=== PATIENT | female | born 1985 | race Caucasian/White ===

== ENCOUNTER 2020-01-19 18:49 | Emergency (ER) | payer MEDICAID, SELFPAY ==
--- NOTE | ~2020-01-19 | CT_ITS ---
EXAMINATION: CTA UE RT DATE: 01/19/2020 20:34 INDICATION: Right arm swelling TECHNIQUE: Computed tomography (CT) of the right upper extremity was performed with 100 cc Omnipaque 350 intravenous contrast. The dose-length product was 1268.48 mGy-cm. Automated exposure control and iterative reconstruction technique were employed. COMPARISON: None FINDINGS: Study is limited by motion. There is narrowing of the brachial artery, likely chronic. Ther e is no evidence for arterial occlusion. No focal abnormal masses or fluid collections. IMPRESSION: 1. No evidence for arterial occlusion. Brachial artery narrowing, likely chronic. Reviewed, dictated and finalized at location A. IMPRESSION: 1. No evidence for arterial occlusion. Brachial artery narrowing, likely chroni c.
[2020-01-19 18:54] VITALS: BP 141/107; PULSE 93; RESP 18; TEMP 36.6; O2SAT 99
--- NOTE | 2020-01-19 19:09 | ED.EXTPRO ---
HPI - Extremity Problem General Chief complaint: Extremity Problem,Nontraumatic Stated complaint: right arm swelling Time Seen by Provider: 01/19/20 19:00 Source: patient and RN notes reviewed Mode of arrival: ambulatory Limitations: no limitations History of Present Illness HPI Narrative: A 34 y/o female presents to the ED with constant, worsening, rt elbow pain beginning this morning when she woke up. She states that throughout the day the pain as continued to worsen and spread to her upper arm. She reports that she has also developed swelling to her rt hand with decreased sensation and tingling. She denies any neck pain, shoulder pain, or OGNZALEZ. Complaint: extremity pain Onset (ago): day(s) (this morning) Pain Consistency: constant and other (worsening) Location: right, upper extremity and elbow Radiation: proximal Associated symptoms: other (swelling to her rt hand with decreased sensation and tingling) Related Data Home Medications Medication Instructions Recorded Confirmed No Home Medications 01/19/20 01/19/20 Allergies Allergy/AdvReac Type Severity Reaction Status Date / Time No Known Allergies Allergy Verified 01/19/20 18:56 Review of Systems Review of Systems: All systems reviewed & are unremarkable except as noted in HPI and below Musculoskeletal: Musculoskeletal: Reports arthralgias (rt elbow that radiates into upper rt arm), Reports joint swelling (swelling), Denies neck pain and Denies other (shoulder pain) Neurologic: Denies headache(s), Reports numbness (decreased sensation to rt hand) and Reports tingling (rt hand) PMFSH Past Medical History Medical History (Updated 01/19/20 @ 22:59 by Chitra Carranza MD) Healthy female Surgical History Surgical History (Updated 01/19/20 @ 19:19 by Willie Howell) No history of previous surgery Social History Social History (Updated 01/19/20 @ 19:19 by Willie Howell) Smoking packs per day: 1 Smoking cigarettes per day: 20.0 Smoking status: Current every day smoker Tobacco type: cigarettes Gender identity (if verbalized by the patient): Female Exam Const: General: cooperative, no acute distress and alert Nutritional Appearance: well nourished Orientation/consciousness: patient oriented x3 Limitations: no limitations HENMT: Mouth: Yes lip normal and Yes moist mucous membranes Resp: Effort & Inspection: normal respiratory effort Auscultation: clear to auscultation bilaterally Cardio: Rate: regular rate Rhythm: regular rhythm Peripheral pulses: brachial pulses present on the right, radial pulses present on the right and ulnar radial pulses present on the right GI: GI Palp: Yes Soft to palpation and No Tenderness to palpation present (GI) Auscultation: normal bowel sounds Neuro: General: patient oriented x3 Cognition (Neuro): normal cognition Speech: normal speech Extrem: General: normal to inspection, full ROM and no clubbing, cyanosis or edema Right upper extremity: shoulder/upper arm (upper arm & forearm were soft w/out any tense compartments or over swelling) tenderness over the biceps tendon and Extremity exam: right hand abnormal to inspection (cool to the touch, poor cap refill, dusky and violaceous color) and swelling Psych: Mental Status: mental status grossly normal Affect: normal affect Attitude: cooperative Course Course Emergency Course: Patient presents with pain to the right elbow and associated discoloration, poor capillary refill, and temperature discrepancy of her right hand associated with some very mild swelling. Clinical picture seems consistent with complex regional pain syndrome. Advised use of anti-inflammatories. Patient to be referred to on-call primary care physician for follow-up care. Vital Signs Vital signs: Vital Signs Temperature 97.9 F 01/19/20 18:54 Pulse Rate 93 01/19/20 18:54 Respiratory Rate 18 01/19/20 18:54 Blood Pressure 141/107 H 01/19/20 18:54 Pulse Oximetry 99 01/19/20 18:
[2020-01-19] MEDS: KETOROLAC 30 MG/ML VIAL (*BKC) IV PUSH (19:41)
[2020-01-19 19:44] LABS: Basophils Absolute Auto 0.2 K/mm3 (0.0-0.1); Basophils Percent Auto 1.1 % (0.2-1.2); Eosinophils Absolute Auto 0.3 K/mm3 (0-0.3); Eosinophils Percent Auto 2.4 % (0-4.4); Hematocrit 47.5 % (37.0-47.0); Hemoglobin 15.9 g/dL (12.0-15.0); Immature Granulocyte Absolute 0.05 K/mm3 (0.00-0.031); Immature Granulocyte Percent A 0.4 % (0-0.5); Lymphocytes Absolute Auto 4.02 K/mm3 (0.9-3.2); Lymphocytes Percent Auto 30.6 % (18.3-44.2); Mean Corpuscular HGB Conc 33.5 g/dl (32-36); Mean Corpuscular Hemoglobin 31.6 pg (26-34); Mean Corpuscular Volume 94.4 fl (80-100); Mean Platelet Volume 9.9 fl (7.4-10.4); Monocytes Absolute Auto 0.9 K/mm3 (0.1-0.6); Monocytes Percent Auto 7.2 % (2.6-8.5); Neutrophils Absolute Auto 7.7 K/mm3 (1.3-6.7); Neutrophils Percent Auto 58.3 % (45.5-73.1); Platelet Count Result 394 k/mm3 (150-375); Red Blood Count 5.03 M/mm3 (4.2-5.4); Red Cell Distribution Width 13.5 % (11.5-14.5); White Blood Count 13.1 K/mm3 (4.5-10.0)
[2020-01-19 19:50] LABS: Prothrombin Time 12.8 Seconds (11.1-14.7)
[2020-01-19 19:51] LABS: Partial Thromboplastin Time 30.9 SECONDS (22.3-36.8)
[2020-01-19 19:52] LABS: Alanine Aminotransferase 27 U/L (4-35); Albumin Level 4.9 g/dL (3.5-5.1); Alkaline Phosphatase 93 U/L (38-126); Aspartate Amino Transferase 33 U/L (14-36); Bilirubin,Total 0.6 mg/dL (0.2-1.3); Blood Urea Nitrogen 12 mg/dL (7-17); Calcium 9.4 mg/dL (8.4-10.2); Carbon Dioxide 23 mmol/L (22-30); Chloride 104 mmol/L (98-107); Creatine Kinase 72 U/L (30-135); Estimated Glomerular Filt Rate > 60; Glucose 90 mg/dL (65-105); Potassium 3.9 mmol/L (3.4-5.0); Sodium 140 mmol/L (137-145)
[2020-01-19 20:08] LABS: D Dimer 0.25 ug/mL (<0.48)
[2020-01-19 21:21] VITALS: BP 141/99; PULSE 66; RESP 16; TEMP 37; O2SAT 97
[2020-01-19 23:11] VITALS: BP 132/77; PULSE 78; RESP 18; O2SAT 98
== END 2020-01-19 23:12 | disposition home or self-care (01) ==
PROVIDERS: Emergency Provider Emergency Medicine
DX: G90.511 Complex regional pain syndrome I of right upper limb (principal); F17.210 Nicotine dependence, cigarettes, uncomplicated
CPT/HCPCS: 36415; 73206; 80053; 82550; 85025; 85380; 85610; 85730; 96374; 99284; J1885; Q9967